=== PATIENT | male | born 1955 | race Caucasian/White ===

== ENCOUNTER 2019-10-03 22:21 | Emergency (ER) | payer MEDICARE ==
[~2019-10-03] VITALS: Ht 175.3 cm; Wt 88.6 kg
[2019-10-03 22:35] VITALS: BP 134/75
[2019-10-03] MEDS ORDERED: PRILOSEC 20MG20 MG PO (22:57)
[2019-10-03] MEDS ORDERED: ADDERALL20 MG PO ×2 (22:58→23:02)
[2019-10-03] MEDS ORDERED: VENCLEXTA100 MG PO (22:58)
[2019-10-03] MEDS ORDERED: FLOMAX 0.40.4 MG/CAP PO (22:59)
[2019-10-03] MEDS ORDERED: ASPIRIN 81M81 MG/TA2 PO (22:59)
[2019-10-03] MEDS ORDERED: ZOCOR 40MG40 MG (23:00)
[2019-10-03] MEDS ORDERED: TOPROL XL200 MG PO (23:00)
[2019-10-03] MEDS ORDERED: CATAPRES 0.1MG0.1 MG PO (23:01)
[2019-10-03] MEDS ORDERED: LAMICTAL 100MG100 MG PO (23:32)
[2019-10-04 01:20] VITALS: PULSE 81; TEMP 98.8
== END 2019-10-04 01:22 | disposition home or self-care (01) ==
LOC: COL.ER 22:21
DX: B34.9 Viral infection, unspecified (principal); I10 Essential (primary) hypertension; F90.9 Attention-deficit hyperactivity disorder, unspecified type; K21.9 Gastro-esophageal reflux disease without esophagitis; E78.5 Hyperlipidemia, unspecified; Z79.82 Long term (current) use of aspirin
CPT/HCPCS: J1885; J2405; J3010; J7030